=== PATIENT | male | born 1960 | race Caucasian/White ===

== ENCOUNTER 2020-04-03 10:25 | Inpatient (IN) | payer OTHER ==
[2020-04-03 10:54] VITALS: BMI 31.9
[2020-04-03] MEDS ORDERED: MAGNESIUM HYDROX 2400MG/30ML ORAL SUSPENSION 30 ML CUP PO PRN (11:27)
[2020-04-03] MEDS ORDERED: NICOTINE POLACRILEX 2 MG GUM BUC PRN (11:27)
[2020-04-03] MEDS ORDERED: IBUPROFEN 400 MG TABLET (FP) PO PRN (11:27)
[2020-04-03] MEDS ORDERED: LORazepam 1 MG TABLET PO PRN (11:27)
[2020-04-03] MEDS ORDERED: ONDANSETRON *ODT* 4 MG TABLET SL PRN (11:27)
[2020-04-03] MEDS ORDERED: METHOCARBAMOL 500 MG TABLET PO PRN (11:27)
[2020-04-03] MEDS ORDERED: MENTHOL/PHENOL 1 EACH UD MM PRN (11:27)
[2020-04-03] MEDS ORDERED: MAG HYDROX/AL HYDROX/SIMETH 30 ML UNIT-DOSE CUP PO PRN (11:27)
[2020-04-03] MEDS ORDERED: ACETAMINOPHEN 325 MG TABLET (FP) PO PRN ×2 (11:27)
[2020-04-03] MEDS ORDERED: BISMUTH SUBSALICYLATE 262 MG/15 ML BTL PO PRN (11:27)
[2020-04-03] MEDS ORDERED: MAGNESIUM CITRATE 300 ML BOTTLE PO PRN (11:27)
[2020-04-03] MEDS: LORazepam 2 MG TABLET PO SCH ×3 (13:05→22:40)
[2020-04-03] MEDS: hydrOXYzine PAMOATE 25 MG CAPSULE (FP) PO SCH ×3 (13:08→22:39)
[2020-04-03] MEDS: PRENATAL VITAMINS W/ FOLIC ACID TABLET (FP) PO SCH (13:08)
[2020-04-03] MEDS ORDERED: ASPIRIN 81 MG CHEWABLE TABLETS PO SCH (14:22)
[2020-04-03] MEDS: ASPIRIN 81 MG CHEWABLE TABLETS PO SCH (16:02)
[2020-04-03 17:02] LABS: HEMATOCRIT 41.9 % (35.4-49); HEMOGLOBIN 13.9 GM/dL (11.7-16.9); MCH 33.5 pg (25.7-33.7); MCHC 33.1 g/dl (32.0-35.9); MEAN CELL VOLUME 101.3 fl (80-96); MEAN PLT VOLUME 11.6 fl (7.5-11.1); PLATELET COUNT 58 K/MM3 (134-434); RBC 4.14 M/mm3 (4.00-5.60); WHITE BLOOD COUNT 3.5 K/mm3 (4.0-10.0)
[2020-04-03 17:23] LABS: POTASSIUM 3.7 mmol/L (3.5-5.1)
[2020-04-03 17:26] LABS: ALBUMIN 3.4 g/dl (3.4-5.0); BLOOD UREA NITROGEN 12.3 mg/dL (7-18); CALCIUM 8.6 mg/dL (8.5-10.1)
[2020-04-03 17:29] LABS: CREATININE 0.5 mg/dL (0.55-1.3)
[2020-04-03 17:31] LABS: BILIRUBIN,TOTAL 5.3 mg/dL (0.2-1); TOT PROT 6.5 g/dl (6.4-8.2)
[2020-04-03] MEDS: MELATONIN 5 MG TABLETS PO SCH (22:39)
[2020-04-03] MEDS: THIAMINE HCL 100 MG TABLET (FP) PO SCH (22:40)
[2020-04-04] MEDS: LORazepam 2 MG TABLET PO SCH ×4 (05:12→22:15)
[2020-04-04] MEDS: hydrOXYzine PAMOATE 25 MG CAPSULE (FP) PO SCH ×5 (05:13→22:16)
[2020-04-04] MEDS ORDERED: ASPIRIN 81 MG CHEWABLE TABLETS PO SCH (10:00)
[2020-04-04] MEDS: PRENATAL VITAMINS W/ FOLIC ACID TABLET (FP) PO SCH (10:14)
[2020-04-04] MEDS: ASPIRIN 81 MG CHEWABLE TABLETS PO SCH (10:14)
[2020-04-04] MEDS: NICOTINE 7 MG/24 HOURS TOPICAL PATCH TD SCH (10:16)
[2020-04-04] MEDS: MELATONIN 5 MG TABLETS PO SCH (22:15)
[2020-04-04] MEDS: THIAMINE HCL 100 MG TABLET (FP) PO SCH (22:15)
[2020-04-05] MEDS: LORazepam 1 MG TABLET PO SCH ×4 (05:08→22:09)
[2020-04-05] MEDS: hydrOXYzine PAMOATE 25 MG CAPSULE (FP) PO SCH ×5 (05:08→22:09)
[2020-04-05] MEDS: PRENATAL VITAMINS W/ FOLIC ACID TABLET (FP) PO SCH (10:14)
[2020-04-05] MEDS: SERTRALINE HCL 50 MG TABLET (FP) PO SCH (10:14)
[2020-04-05] MEDS: NICOTINE 7 MG/24 HOURS TOPICAL PATCH TD SCH (10:15)
[2020-04-05] MEDS: ASPIRIN 81 MG CHEWABLE TABLETS PO SCH (10:17)
[2020-04-05] MEDS ORDERED: LORazepam 0.5 MG TABLET ONE (21:29)
[2020-04-05] MEDS: THIAMINE HCL 100 MG TABLET (FP) PO SCH (22:08)
[2020-04-05] MEDS: MELATONIN 5 MG TABLETS PO SCH (22:09)
[2020-04-06] MEDS ORDERED: LORazepam 0.5 MG TABLET PO PRN
[2020-04-06] MEDS: LORazepam 0.5 MG TABLET PO SCH ×4 (04:59→22:09)
[2020-04-06] MEDS: hydrOXYzine PAMOATE 25 MG CAPSULE (FP) PO SCH ×5 (05:00→22:10)
[2020-04-06] MEDS: ASPIRIN 81 MG CHEWABLE TABLETS PO SCH (10:22)
[2020-04-06] MEDS: PRENATAL VITAMINS W/ FOLIC ACID TABLET (FP) PO SCH (10:22)
[2020-04-06] MEDS: SERTRALINE HCL 50 MG TABLET (FP) PO SCH (10:22)
[2020-04-06] MEDS: NICOTINE 7 MG/24 HOURS TOPICAL PATCH TD SCH (10:23)
[2020-04-06 12:09] LABS: ALBUMIN 2.8 g/dl (3.4-5.0)
[2020-04-06 12:12] LABS: BILIRUBIN,DIRECT 2.2 mg/dL (0.0-0.2)
[2020-04-06 12:14] LABS: TOT PROT 5.5 g/dl (6.4-8.2)
[2020-04-06 12:17] LABS: BILIRUBIN,TOTAL 2.9 mg/dL (0.2-1)
[2020-04-06] MEDS: THIAMINE HCL 100 MG TABLET (FP) PO SCH (22:09)
[2020-04-06] MEDS: MELATONIN 5 MG TABLETS PO SCH (22:09)
[2020-04-07] MEDS ORDERED: LORazepam 0.5 MG TABLET PO ONE (05:00)
[2020-04-07] MEDS: hydrOXYzine PAMOATE 25 MG CAPSULE (FP) PO SCH (05:27)
[2020-04-07 07:11] VITALS: TEMP 96.8
[2020-04-07 09:12] VITALS: BP 123/72; PULSE 77
== END 2020-04-07 09:05 | disposition home or self-care (01) | DRG 897 ==
LOC: YASAS 10:25 → Y3N 11:33
PROVIDERS: ADMIT Allergy & Immunology; ATTEND Allergy & Immunology
PROC: HZ2ZZZZ Detoxification Services for Substance Abuse Treatment (ICD-10-PCS; principal; 2020-04-03)
DX: F10.230 Alcohol dependence with withdrawal, uncomplicated (principal); F17.210 Nicotine dependence, cigarettes, uncomplicated; F19.24 Other psychoactive substance dependence with psychoactive substance-induced mood disorder; F32.9 Major depressive disorder, single episode, unspecified; D69.6 Thrombocytopenia, unspecified; I10 Essential (primary) hypertension; R94.5 Abnormal results of liver function studies; E66.9 Obesity, unspecified; Z68.32 Body mass index [BMI] 32.0-32.9, adult; Z86.79 Personal history of other diseases of the circulatory system
CPT/HCPCS: 36415; 80053; 80076; 85027; 86780; C9803; U0003

== ENCOUNTER 2020-08-27 18:56 | Inpatient (IN) | payer OTHER ==
[2020-08-27] MEDS ORDERED: hydrOXYzine PAMOATE 25 MG CAPSULE (FP) PO PRN (21:49)
[2020-08-27] MEDS ORDERED: MAGNESIUM HYDROX 2400MG/30ML ORAL SUSPENSION 30 ML CUP PO PRN (21:49)
[2020-08-27] MEDS ORDERED: ACETAMINOPHEN 325 MG TABLET (FP) PO PRN (21:49)
[2020-08-27] MEDS ORDERED: MAG HYDROX/AL HYDROX/SIMETH 30 ML UNIT-DOSE CUP PO PRN (21:49)
[2020-08-27] MEDS ORDERED: BISMUTH SUBSALICYLATE 524 MG/30 ML PO PRN (21:49)
[2020-08-27] MEDS ORDERED: ONDANSETRON *ODT* 4 MG TABLET SL PRN (21:49)
[2020-08-27] MEDS ORDERED: METHOCARBAMOL 500 MG TABLET PO PRN (21:49)
[2020-08-27] MEDS ORDERED: IBUPROFEN 400 MG TABLET (FP) PO PRN (21:49)
[2020-08-27] MEDS ORDERED: MAGNESIUM CITRATE 300 ML BOTTLE PO PRN (21:49)
[2020-08-27] MEDS ORDERED: MENTHOL/PHENOL 1 EACH UD MM PRN (21:49)
[2020-08-27 23:32] VITALS: BMI 32.9
[2020-08-27] MEDS: MELATONIN 5 MG TABLETS PO SCH (23:32)
[2020-08-27] MEDS: THIAMINE HCL 100 MG TABLET (FP) PO SCH (23:32)
[2020-08-28] MEDS ORDERED: diazePAM 5 MG TABLET PO PRN (09:04)
[2020-08-28 09:52] LABS: HEMATOCRIT 40.7 % (35.4-49); HEMOGLOBIN 14.2 GM/dL (11.7-16.9); MCH 32.3 pg (25.7-33.7); MCHC 34.9 g/dl (32.0-35.9); MEAN CELL VOLUME 92.6 fl (80-96); MEAN PLT VOLUME 8.7 fl (7.5-11.1); PLATELET COUNT 58 10^3/uL (134-434); RBC 4.39 M/mm3 (4.00-5.60); RDW 14.7 % (11.9-15.9)
[2020-08-28 10:12] LABS: ALBUMIN 3.9 g/dl (3.4-5.0); BLOOD UREA NITROGEN 12.2 mg/dL (7-18); CALCIUM 8.6 mg/dL (8.5-10.1)
[2020-08-28 10:15] LABS: CREATININE 0.5 mg/dL (0.55-1.3)
[2020-08-28 10:17] LABS: TOT PROT 6.6 g/dl (6.4-8.2)
[2020-08-28] MEDS: NICOTINE 7 MG/24 HOURS TOPICAL PATCH TD SCH ×2 (10:23→10:25)
[2020-08-28] MEDS: diazePAM 5 MG TABLET PO SCH ×3 (10:23→22:24)
[2020-08-28] MEDS: ASPIRIN 81 MG CHEWABLE TABLETS PO SCH (10:23)
[2020-08-28] MEDS: PRENATAL VITAMINS W/ FOLIC ACID TABLET (FP) PO SCH (10:23)
[2020-08-28] MEDS: THIAMINE HCL 100 MG TABLET (FP) PO SCH (22:24)
[2020-08-28] MEDS: MELATONIN 5 MG TABLETS PO SCH (22:27)
[2020-08-29] MEDS: diazePAM 5 MG TABLET PO SCH ×3 (05:32→17:38)
[2020-08-29 10:07] LABS: HEMATOCRIT 41.4 % (35.4-49); HEMOGLOBIN 14.1 GM/dL (11.7-16.9); MCH 32.1 pg (25.7-33.7); MCHC 34.1 g/dl (32.0-35.9); MEAN CELL VOLUME 94.1 fl (80-96); MEAN PLT VOLUME 9.1 fl (7.5-11.1); PLATELET COUNT 53 10^3/uL (134-434); RDW 14.7 % (11.9-15.9); WHITE BLOOD COUNT 3.5 K/mm3 (4.0-10.0)
[2020-08-29] MEDS: PRENATAL VITAMINS W/ FOLIC ACID TABLET (FP) PO SCH (10:26)
[2020-08-29] MEDS: NICOTINE 7 MG/24 HOURS TOPICAL PATCH TD SCH (10:26)
[2020-08-29] MEDS: ASPIRIN 81 MG CHEWABLE TABLETS PO SCH (10:26)
[2020-08-29 14:25] VITALS: TEMP 96.9
[2020-08-29 18:53] VITALS: BP 134/74; PULSE 71
[2020-08-30] MEDS ORDERED: diazePAM 5 MG TABLET PO SCH (06:00)
[2020-08-31] MEDS ORDERED: diazePAM 5 MG TABLET PO SCH (06:00)
[2020-09-01] MEDS ORDERED: diazePAM 5 MG TABLET PO ONE (06:00)
== END 2020-08-29 19:27 | disposition left against medical advice (07) | DRG 894 ==
LOC: YASAS 18:56 → Y3N 22:49 → UNDOADMIN 22:49 → Y3N 22:51
PROVIDERS: ADMIT Allergy & Immunology; ATTEND Allergy & Immunology
PROC: HZ2ZZZZ Detoxification Services for Substance Abuse Treatment (ICD-10-PCS; principal; 2020-08-27)
DX: F10.230 Alcohol dependence with withdrawal, uncomplicated (principal); F10.220 Alcohol dependence with intoxication, uncomplicated; F17.210 Nicotine dependence, cigarettes, uncomplicated; I10 Essential (primary) hypertension; I48.91 Unspecified atrial fibrillation; R00.0 Tachycardia, unspecified
CPT/HCPCS: 36415; 71045-TC-FY; 80053; 85027; 86780; C9803; U0003; U0005

== ENCOUNTER 2022-05-14 09:43 | Inpatient (IN) | payer OTHER ==
[2022-05-14] MEDS ORDERED: ONDANSETRON *ODT* 4 MG TABLET SL PRN (12:34)
[2022-05-14] MEDS ORDERED: guaiFENesin 600 MG TABLET.ER (FP) PO PRN (12:34)
[2022-05-14] MEDS ORDERED: DICYCLOMINE HCL 10 MG CAPSULE PO PRN (12:34)
[2022-05-14] MEDS ORDERED: METHOCARBAMOL 500 MG TABLET PO PRN (12:34)
[2022-05-14] MEDS ORDERED: ACETAMINOPHEN 325 MG TABLET (FP) PO PRN (12:34)
[2022-05-14] MEDS ORDERED: MAG HYDROX/AL HYDROX/SIMETH 30 ML UNIT-DOSE CUP PO PRN (12:34)
[2022-05-14] MEDS ORDERED: NALOXONE HCL 0.4 MG/ML VIAL IM PRN (12:34)
[2022-05-14] MEDS ORDERED: NALOXONE HCL (KLOXXADO) 8 MG SPRAY NS PRN (12:34)
[2022-05-14] MEDS ORDERED: NICOTINE 10 MG CARTRIDGE (INHALER) IH PRN (12:34)
[2022-05-14] MEDS ORDERED: BENZOCAINE/MENTHOL (CHLORASEPTIC ) LOZENGE MM PRN (12:34)
[2022-05-14] MEDS ORDERED: MAGNESIUM HYDROX 2400MG/30ML ORAL SUSPENSION 30 ML CUP PO PRN (12:34)
[2022-05-14] MEDS ORDERED: LOPERAMIDE HCL 2 MG CAPSULE PO PRN (12:34)
[2022-05-14] MEDS ORDERED: POLYETHYLENE GLYCOL (HEALTHYLAX) 3350 17 GM PACKET PO PRN (12:34)
[2022-05-14] MEDS ORDERED: BENZONATATE 200 MG CAPSULE PO PRN (12:34)
[2022-05-14] MEDS ORDERED: BISMUTH SUBSALICYLATE 524 MG/30 ML PO PRN (12:34)
[2022-05-14] MEDS: chlordiazePOXIDE HCL 25 MG CAPSULE PO PRN ×2 (14:12→20:22)
[2022-05-14] MEDS: NICOTINE 21 MG/24 HOURS TOPICAL PATCH TD SCH (14:12)
[2022-05-14] MEDS ORDERED: NICOTINE 14 MG/24 HOURS TOPICAL PATCH TD ONE (14:14)
[2022-05-14] MEDS ORDERED: chlordiazePOXIDE HCL 25 MG CAPSULE ONE (14:14)
[2022-05-14] MEDS ORDERED: ASPIRIN 81 MG CHEWABLE TABLETS ONE (14:14)
[2022-05-14] MEDS: ASPIRIN 81 MG CHEWABLE TABLETS PO SCH (14:15)
[2022-05-14] MEDS ORDERED: NICOTINE 21 MG/24 HOURS TOPICAL PATCH ONE (14:21)
[2022-05-14] MEDS: chlordiazePOXIDE HCL 25 MG CAPSULE PO SCH ×2 (17:15→22:09)
[2022-05-14] MEDS: MELATONIN 5 MG TABLETS PO SCH (22:09)
[2022-05-14] MEDS: THIAMINE HCL 100 MG TABLET (FP) PO SCH (22:09)
[2022-05-15] MEDS: chlordiazePOXIDE HCL 25 MG CAPSULE PO SCH ×4 (05:18→22:06)
[2022-05-15] MEDS: NICOTINE 21 MG/24 HOURS TOPICAL PATCH TD SCH (10:05)
[2022-05-15] MEDS: PRENATAL VITAMINS W/ FOLIC ACID TABLET (FP) PO SCH (10:05)
[2022-05-15] MEDS: ASPIRIN 81 MG CHEWABLE TABLETS PO SCH (10:06)
[2022-05-15 11:03] LABS: HEMATOCRIT 39.9 % (35.4-49); HEMOGLOBIN 13.8 GM/dL (11.7-16.9); MCH 30.9 pg (25.7-33.7); MCHC 34.6 g/dl (32.0-35.9); MEAN CELL VOLUME 89.4 fl (80-96); PLATELET COUNT 65 10^3/uL (134-434); RBC 4.47 M/mm3 (4.00-5.60); WHITE BLOOD COUNT 3.5 K/mm3 (4.0-10.0)
[2022-05-15 11:13] LABS: ALBUMIN 3.4 g/dl (3.4-5.0); BLOOD UREA NITROGEN 11.6 mg/dL (7-18); CALCIUM 8.8 mg/dL (8.5-10.1)
[2022-05-15 11:16] LABS: CREATININE 0.6 mg/dL (0.55-1.3)
[2022-05-15] MEDS: MELATONIN 5 MG TABLETS PO SCH (22:05)
[2022-05-15] MEDS: THIAMINE HCL 100 MG TABLET (FP) PO SCH (22:06)
[2022-05-16] MEDS: chlordiazePOXIDE HCL 25 MG CAPSULE PO SCH ×4 (05:36→22:33)
[2022-05-16] MEDS: PRENATAL VITAMINS W/ FOLIC ACID TABLET (FP) PO SCH (10:23)
[2022-05-16] MEDS: ASPIRIN 81 MG CHEWABLE TABLETS PO SCH (10:23)
[2022-05-16] MEDS: NICOTINE 21 MG/24 HOURS TOPICAL PATCH TD SCH (10:23)
[2022-05-16] MEDS: SERTRALINE HCL 50 MG TABLET (FP) PO SCH (12:44)
[2022-05-16 22:07] VITALS: TEMP 97.3
[2022-05-16] MEDS: MELATONIN 5 MG TABLETS PO SCH (22:33)
[2022-05-16] MEDS: THIAMINE HCL 100 MG TABLET (FP) PO SCH (22:33)
[2022-05-17] MEDS ORDERED: chlordiazePOXIDE HCL 10 MG CAPSULE PO PRN
[2022-05-17] MEDS ORDERED: chlordiazePOXIDE HCL 10 MG CAPSULE PO SCH (05:00)
[2022-05-17] MEDS: PRENATAL VITAMINS W/ FOLIC ACID TABLET (FP) PO SCH (09:10)
[2022-05-17] MEDS: SERTRALINE HCL 50 MG TABLET (FP) PO SCH (09:10)
[2022-05-17] MEDS: ASPIRIN 81 MG CHEWABLE TABLETS PO SCH (09:10)
[2022-05-17] MEDS: NICOTINE 21 MG/24 HOURS TOPICAL PATCH TD SCH (09:11)
[2022-05-17 09:15] VITALS: BP 129/73; PULSE 78; RESP 18
[2022-05-18] MEDS ORDERED: chlordiazePOXIDE HCL 10 MG CAPSULE PO SCH (05:00)
[2022-05-19] MEDS ORDERED: chlordiazePOXIDE HCL 10 MG CAPSULE PO ONE (05:00)
== END 2022-05-17 09:12 | disposition home or self-care (01) | DRG 897 ==
LOC: YASAS 09:43 → Y3N 12:53
PROVIDERS: ADMIT Allergy & Immunology; ATTEND Surgery
PROC: HZ2ZZZZ Detoxification Services for Substance Abuse Treatment (ICD-10-PCS; principal; 2022-05-14)
DX: F10.230 Alcohol dependence with withdrawal, uncomplicated (principal); F17.210 Nicotine dependence, cigarettes, uncomplicated; F32.A Depression, unspecified; I10 Essential (primary) hypertension; E66.9 Obesity, unspecified; Z68.32 Body mass index [BMI] 32.0-32.9, adult; Z86.79 Personal history of other diseases of the circulatory system
CPT/HCPCS: 36415; 80053; 83036; 85027; 86780; C9803-CS; U0003; U0005